=== PATIENT | male | born 1960 | race Caucasian/White ===

== ENCOUNTER 2018-11-08 04:52 | Inpatient (IN) | payer OTHER ==
--- NOTE | 2018-11-07 22:50 | NUR ---
PT REPORTS RELIEF OF ABD PAIN TO 2/10, WILL CONTINUE TO MONITOR
[~2018-11-08] VITALS: Ht 177.8 cm; Wt 61.5 kg
[~2018-11-08 04:52] MED LIST: GABAPENTIN100 M2; GABAPENTIN800 M1 PO; JARDIANCE10 MG; JARDIANCE25 MG PO; LIPI10 PO; LISINOPRIL2.5 MG; LISINOPRIL40 MG PO; METFORMIN HYDR500 M1; METFORMIN850 M1 PO; TOPROL XL100 MG PO; TOPROL XL25 MG
[2018-11-08 04:54] VITALS: Ht 177.8 cm; Wt 61.5 kg
--- NOTE | 2018-11-08 05:07 | NUR ---
PT PRESENTS TO ER TODAY WITH C/O OF VOMITING FOR APPROX 4 DAY. PER PT HE VOMITED ONCE THIS MORNING. PT ALSO REPORTS ONE EPISODE OF DIARRHEA AND GENERALIZED ABD PAIN. PT STATES PAIN PRESSURE LIKE AND RATES IT A 8/10. PT DENIES FEVER OR ANY OTHER SYMPTOMS. PT DENIES TAKING ANY MEDICATION FOR PAIN. PT IS A/O X4. RESP ARE EQUAL AND UNLABORED. NO ACUTE DISTRESS NOTED.
[2018-11-08 06:11] LABS: BASOPHIL % 0.8 % (0-2); PLATELET COUNT 455 x10^3mcL (130-400); RED CELL DISTRIBUTION WIDTH 16.2 % (11.5-14.5)
[2018-11-08 06:14] LABS: CALCIUM 10.1 mg/dL (8.5-10.1); CARBON DIOXIDE 29.5 mmol/L (21-32); CREATININE SERUM 1.9 mg/dL (0.7-1.3); POTASSIUM SERUM 4.9 mmol/L (3.5-5.1)
[2018-11-08 06:19] LABS: ALBUMIN 3.5 g/dL (3.4-5.0); BILIRUBIN TOTAL 0.2 mg/dL (0.20-1.00); TOTAL PROTEIN, SERUM 8.6 g/dL (6.4-8.2)
--- NOTE | 2018-11-08 07:21 | NUR ---
RECEIVED PT, LAYING IN BED, RESP EVEN AND UNLABORED, ON RA@99%. PT AAOX3, REPORTS GENERALIZED ABD PAIN FOR A COUPLE OF DAYS WORSEING IN THE LAST FEW DAYS. ABD DISTENDED, SOFT, TENDER TO TOUCH. +BS [id number]. FACIAL GRIMACING NOTED, ASKED PT IF HE NEEDED PAIN MEDS, BUT CONCERNED WITH DRIVING. INFORMED HE COULD CALL FOR RIDE, BUT STATES HE'D ARTHER WAIT ON HIS PAIN MEDS AT THIS TIME. CALL LIGHT GIVEN, PT INFORMED OF URINE SPECIMEN NEEDED, VERBALIZED UNDERSTANDING. VSS, WILL CONT TO MONITOR.
--- NOTE | 2018-11-08 08:38 | NUR ---
PT GIVEN MORPHONE AND ZOFRAN, ZOSYN STARTED ORDERED. PT INFORMED OF PLANOF CARE REGARDING NG INSERTION, TEACHING DONE ON OPROCEDURE, PT VERBALIZED UNDERSTANDING AND GAVE CONSENT. PT ALSO INFORMED OF NPO STATUS. VSS.
--- NOTE | 2018-11-08 10:16 | NUR ---
NGT INSERTION ATTEMPT X3, UNSUCCESFUL. NOSE BLEED CONTROLLED AT THIS TIME, FAUZIA AND DR ANG INFORMED. WILL INFORM ADMITTING PHYSICIAN.
--- NOTE | 2018-11-08 10:44 | NUR ---
REPORT GIVEN TO SAVANA MICHAELS, UPDATED ON STATUS, ALBS AND VITALS. PT STABLE FOR TRANSFER. RN AWARE THAT WE WERE UNSUCCESFUL IN INSERTING NGT.
--- NOTE | 2018-11-08 12:00 | NUR ---
RECEIVED REPORT FROM ED NURSE. PATIENT IS IN BED 210B. PATIENT IS STABLE, COOPERATIVE WITH NURSING CARE. PATIENT DENIES SOB, AND PAIN AT THIS TIME. PATIENT IS ON ROOM AIR WITH INITAL VITAL SIGNS BP 131/73, HR 83, TEMP 97.5 F, RR 18, O2 98% RA, PAIN 0/10. ABD IS SOFT, ROUND, DISTENDED BUT NON TENDER TO PALPATION. QUESTIONS AND CONCERNS ADRESSED, AFETY PRECAUTIONS MAINTAINED.
[2018-11-08 12:01] VITALS: BP 131/73
[2018-11-08 13:16] VITALS: BP 131/73
--- NOTE | 2018-11-08 13:41 | NUR ---
PATIENT IS REFUSING NG TUBE PLACEMENT. PER PATIENT THREE NURSES TRIED 6 ATTEMPTS IN THE EMERGENCY ROOM AND DOES NOT WANT TO GO THROUGH THAT AGAIN. I WILL MAKE THE DOCTOR AWARE OF THE REFUSAL.
--- NOTE | 2018-11-08 14:00 | NUR ---
DR LOUISE MADE AWARE THAT PATIENT IS REFUSING NG TUBE PLACEMENT. HE ASKED IF SURGZI HAS COME TO DO CONSULT. HE WILL CALL TO SEE WHO WILL DO SURGURY CONSULT.
--- NOTE | 2018-11-08 14:32 | NUR ---
PATIENT IS STABLE RESTING IN BED COMFORTABLY. THERE ARE NO APPARENT SIGNS OF SOB. PATIENT DENIES PAIN AT THIS TIME. PATIENT DENIES OTHER NEEDS AT THIS TIME. SAFETY PRECAUTIONS IN PLACE.
--- NOTE | 2018-11-08 16:00 | NUR ---
PATIENT IS RESTING COMFORTABLY IN BED. NO SIGNS OF APPARENT SOB. IV IN LEFT FOREARM, INFUSING WELL,NO REDNESS NOTED. PATIENT DENIES PAIN AT THIS TIME. FRIEND AT BEDSIDE. PATIEINT DENIES OTHER NEEDS AT THIS TIME.
[2018-11-08 17:42] VITALS: BP 135/69
--- NOTE | 2018-11-08 17:50 | NUR ---
NOTIFIED DR LOUISE OF PATIENT GLUCOSE 87. HE DID TELEPHONE READ BACK ORDER FOR 5% DEXTROSE IN NS 1000ML BG ONCE.
--- NOTE | 2018-11-08 18:45 | NUR ---
PATIENT IS STABLE, DENIES PAIN, NO SIGNS OF SHORTNESS OF BREATH NOTED. FRIEND AT BEDSIDE. PATIENT IS SITTING UP IN BED COMFORTABLY. IV INFUSING D5 NS AT 100ML PER HR. PATIENT HAS SBO, REFUSED NG TUBE PLACEMENT AFTER FAILED ATTEMPTS IN THE ED. IS AWARE. QUESTIONS AND CONCERNS ADDRESSED, SAFETY PERCAUTIONS IN PLACE. WILL ENDORSE CARE TO LAUNDRETTE OWNER NURSE.
--- NOTE | 2018-11-08 19:10 | NUR ---
DR MONROE LEHMAN AT BEDSIDE.
--- NOTE | 2018-11-08 19:30 | NUR ---
DR LEHMAN IN ROOM INSERTING NGT 16 UGANDAN. PT TOLERATED WELL, ATTACHED TO INTERMITENT SUCTION.
--- NOTE | 2018-11-08 19:45 | NUR ---
PT SITTING UP IN BED A/O X 4 PERIPHERAL PULSES PALPABLE THROUGHOUT, LUNG SOUNDS CTA, PT ON RA, ABD FIRM AND DISTENDED, NONTENDER. BOWEL SOUNDS ACTIVE, PT IS CONTINENT OF URINE, PT IS AMBULATORY, IV LEFT AC CDI, SAFETY PRECAUTIONS ION PLACE WILL CONTINUE TO MONITOR
[2018-11-08 21:00] VITALS: BP 144/78
--- NOTE | 2018-11-08 22:30 | NUR ---
PT COMPLAINING OF 9/10 CRAMPING PAIN TO THE ABD, REQUESTING PAIN MEDS, ADMINISTERED, MORPHINE PRN PER MD ORDER WILL REASSES.
--- NOTE | 2018-11-08 22:40 | NUR ---
FOREST FIRE PREVENTION SPECIALIST TO FLOOR WITH CONTRAST SOLUTION AND FIRST 450 ML HAS BEEN INSTILLED THROUGH NGT. PT TOLERATING WELL.WILL CONTINUE TO MONITOR
--- NOTE | 2018-11-08 23:45 | NUR ---
INSTILLED SECOND 450ML OF CONTRAST SOLUTION, PT TOLERATED WELL WILL CONTINUE TO MONITOR, SHELL SHOP SUPERVISOR STATED THEY WOULD BE HERE BETWEEN 0130 AND 0200
--- NOTE | 2018-11-09 01:43 | NUR ---
PROCESS SAFETY MANAGERKEVIN MARR UP TO TRANSPORT PATIENT FOR CT, PT STABLE UPON LEAVING IN WHEELCHAIR
--- NOTE | 2018-11-09 02:00 | NUR ---
PT RETURNED TO BED FROM CT, PT RECONNECTED TO SUCTION, AND FLUIDS RESTARTED, SAFETY PRECAUTIONS IN PLACE, WILL CONTINUE TO MONITOR
--- NOTE | 2018-11-09 02:30 | NUR ---
PT C/O FEELING NAUSEATED. NO VOMITING NOTED. GREENISH YELLOW SECRETION CONTINUES TO COME OUT VIA NGT TO SUCTION. PT MEDICATED W/ ZOFRAN 4 MG IV.
--- NOTE | 2018-11-09 03:00 | NUR ---
PT APPEARS COMFORTABLE AT THIS TIME WITH HIS EYES CLOSED. NO FURTHER C/O NAUSEA.
--- NOTE | 2018-11-09 05:24 | NUR ---
PT SLEPT THROUGH THE NIGHT. PT NGT WAS STARTED BY DR LEHMAN AT THE BEGINING OF SHIFT AND INTERMITENT SUCTION WAS MAINTAINED WITH EXCEPTION OF CONTRAST ADMINISTRATION WHICH WAS APPROVED BY DR LEHMAN, SAFETY PRECAUTIONS WERE MAINTAINED WILL MONITOR AND ENDORSE CARE TO ONCOMING RN
[2018-11-09 06:05] VITALS: BP 148/80
--- NOTE | 2018-11-09 06:57 | NUR ---
DR. Elyse LEHMAN CALLED TO CHECK ON PT'S CONDITION. INFORMED HIM THAT PT RECEIVED 2 DOSES OF MORPHINE FOR PAIN, HAD OUTPUT OF 900 CC FROM NGT, BP OF 148/80. ALSO READ RESULT OF CT SCAN. ORDER FOR STAT KUB GIVEN.
--- NOTE | 2018-11-09 07:02 | NUR ---
CALLED RADIOLOGY DEPARTMEN FOR STAT KUB.
--- NOTE | 2018-11-09 07:05 | NUR ---
RECIEVED BEDSIDE REPORT FROM [facility] SHIFT NURSE DRE AND ORIENTEE FARZANEH. PATIENT IS STABLE. HAS NG TUBE IN PLACE TO INTERMITTENT LOW SUCTION. IV ACCESS TO LFA INFUSING WELL. NS AT 100 ML/HR. PATIENT IS ON ROOM AIR, NO APPARENT SIGNS OF SOB NOTED. PATIENT IS SITTING ON EDGE OF BED, DENIES PAIN AT THIS TIME. DENIES N/V. SUCTION CANISTER WITH 300ML OF GREEN DRAINAGE WITH SOME SOLID PIECES. PATIENT WILL BE HEADING TO OR THIS MORNING.
--- NOTE | 2018-11-09 07:10 | NUR ---
DR. Jacqui LEHMAN CALLED AND GAVE ORDER TO OBTAIN CONSENT FOR EXPLORATORY LAPAROTOMY FOR BOWEL OBSTRUCTION, POSSIBLE BOWEL RESECTION, POSSIBLE OSTOMY AND RESECTION OF INTRA-ABDOMINAL MASS.
[2018-11-09 07:19] LABS: BASOPHIL % 0.3 % (0-2)
[2018-11-09 07:38] LABS: CALCIUM 8.2 mg/dL (8.5-10.1); CARBON DIOXIDE 26.3 mmol/L (21-32); CHLORIDE SERUM 105 mmol/L (98-107); CREATININE SERUM 0.8 mg/dL (0.7-1.3); GFR1 > 60 mL/min; GLUCOSE SERUM 153 mg/dL (74-106); MAGNESIUM 2.6 mg/dL (1.8-2.4); POTASSIUM SERUM 4.5 mmol/L (3.5-5.1); SODIUM SERUM 141 mmol/L (136-145)
--- NOTE | 2018-11-09 07:40 | NUR ---
RECEIVED CALL FROM OR NURSE SAWANT. GAVE REPORT ON PATIENT TO OR NURSE.
[2018-11-09 07:42] LABS: PLATELET COUNT 428 x10^3mcL (130-400)
--- NOTE | 2018-11-09 07:42 | NUR ---
PATIENT GIVEN WIPED WITH CHLOROHEXADINE WIPES IN PREPERATION FOR TAKE TO OR.
--- NOTE | 2018-11-09 07:50 | NUR ---
PATIENT HEADING TO OR FOR SCHEDULED SURGERY. AM MEDICATIONS LOVENOX, PEPCID NOT GIVEN. ROCEPHIN IVPB GIVEN TO OR NURSE TO ADMINISTER.
--- NOTE | 2018-11-09 07:54 | NUR ---
PATIENT TAKEN DOWN TO OR BY OR NURSE.
--- NOTE | 2018-11-09 09:07 | NUR ---
NOTIFIED BY OR NURSE THAT SHE IS TAKING PATIENT BELONGINGS TO ICU. THE PATIENT WILL STAY IN ICU POST OP. ALL PERSONAL BELONGING TO ICU WITH OR NURSE.
--- NOTE | 2018-11-09 11:05 | NUR ---
CALLED ICU SPOKE WITH RUBEN TO GIVE REPORT ON PATIENT.
--- NOTE | 2018-11-09 14:06 | NUR ---
RECEIVED PT FROM OR S/P EXPLORATORY LAPAROSTOMY, EXTENSIV LYSIS ADHESIONS. PT IS AWAKE, ALERT, ORIENTED X 3. PT'S VS CHECKED: HR 88, O2 SAT 97% ON RA, RR 17, BP 115/60 (90). PT STATED PAIN WITHIN TOLERANCE. PT BREATHING ON RA, EVEN, UNLABORED. PT STILL FEELING NAUSEA, NGT IN PLACE, CONNECT TO WALL LOW CONTINUOUS SUCTION. REGLAN GIVEN IN OR AT 1323. ABD MIDELINE INCISION SITE COVERED WITH POST-OP DRESSING AND ABD BINDER, DRESSING CDI. PER OR REPORT, INCISION IS CLOSED WITH SUTURE, CARLOS, TELFA, 4X4, ABD PAD AND ABD BINDER. ENGLISH IN PLACE, DRAINING FREELY VIA GRAVITY. URINE COLOR YELLOW. SCD APPLIED TO BLE, LOVENOX IS ORDERED. IV SITE SALINE LOCK AT THIS TIME, WILL RESUME IVF PER ORDER.
--- NOTE | 2018-11-09 15:06 | NUR ---
Initial Nutrition Assessment- IC06/A CHAD IVORY IA HR Dx: Bowel obstruction, intusseseption PMHx: DM, HTN PSHx: ex-lap for pancreatectomy Labs: (11/09) BG 153H, BUN 23H, WBC 13.6H, MG 2.6H Meds: D50, Humulin, Pepcid, zofran Diet: NPO (s/p ex-lap), consult received for evaluation for PPN PO Intake: Ht: 177.8 cm (70") Wt: 61 kg (134#) BMI: 19.4 kg/m2 IBW: 166# (75 KG) %IBW: 81 UBW: ask pt. Age: 58/M Food Allergies: NKFA Skin: intact Abiodun: 19 Edema: none GI: last BM: 11/07 (Diarrhea), NGT in place with 300 ml of fluid in canister. Per H&P, pt is a 58-year-old male with a history of diabetes and hypertension and heart disease and remote history of ex-lap for pancreatectomy who presents with 4 days of nausea and vomiting and loose stools with generalized abdominal discomfort. Operative report on 11/09/18 suggest port-op ex-lap diagnosis of high grade/complete SBO due to post-op adhesions. FNS received consult for "evaluation for PPN". Imaging: RAD/XR ABD: KUB (AP/PA) (11/09/18) Impression: Findings suggest ileus versus partial small bowel obstruction. RDN visit (11/09): Spoke with RN Dianne. She said that pt just returned from the surgery and has N/V but no diarrhea. Pt has been NPO since admission and has been diagnosed with high grade SBO post ex-lap. Discussed the recommendations for PPN with RN. Problem with: N: yes V: yes D: no C: no Problems with: Chewing/Swallowing: no, NPO d/t SBO Current appetite: poor Recent wt change: unable to access Vitamin/Supplement use: unable to access Special diet at home: unable to access Physical activity: unable to access Education: Diet education N/A at this time. Estimated Nutritional Needs Based on actual body weight 61 kg Energy: 2433-0252 kcal/d (25-30 kcal/kg-maintenance) Protein: 61-73 g/d (1-1.2g/kg)-maintenance and preservation of lean body mass Fluid: 4704-9344 ml/d (1 ml/kcal-fluid balance) or per doctor Nutrition Diagnosis 1. Altered GI function reacted to SBO as evidenced by post-operative (ex-lap) diagnosis of high grade bowel obstruction due to post-op adhesions Intervention 1. Recommend PPN Dextrose 10%, AA 4.25% @ 20ml/hr, goal 45ml/hr. Progress 10ml Q2H. Provides 1080ml fluid, 551 kcal, 46g protein. Monitor/Evaluate Goal: PPN intake at least 75% of estimated needs Monitor: PPN intake/tolerance, Labs, GI function F/U in 2-3 days as high risk 11/11-11/12
--- NOTE | 2018-11-09 15:06 | NUR ---
1. Recommend PPN Dextrose 10%, AA 4.25% @ 20ml/hr, goal 45ml/hr. Progress 10ml Q2H. Provides 1080ml fluid, 551 kcal, 46g protein.
--- NOTE | 2018-11-09 15:30 | NUR ---
PT VOMIT AND COMPLAIN OF INCREASING PAIN ON INCISION SITE. ZOFRAN AND MORPHINE GIVEN PER PRN ORDER.
[2018-11-09 15:56] VITALS: BP 110/57
--- NOTE | 2018-11-09 19:05 | NUR ---
RECEIVED REPORT FROM XENIA ARELLANO FOR CONTINUITY OF CARE. ALL QUESTIONS AND CONCERNS ADDRESSED. PT IS AWAKE AND ALERT. BREATHING IS E/U. ASSESSMENT TO FOLLOW.
[2018-11-09 19:07] VITALS: BP 125/70
--- NOTE | 2018-11-09 19:16 | NUR ---
PT COMPLAIN OF PAIN, MORPHINE GIVEN PER PRN ORDER. PT'S REPORT GIVEN TO COMING NURSE. QUESTIONS AND CONCERN ANSWERED.
--- NOTE | 2018-11-09 19:48 | NUR ---
PT C/O OF NAUSEA; WILL MEDICATE PER EMAR.
--- NOTE | 2018-11-09 23:38 | NUR ---
PT C/O OF PAIN 02/17. WILL MEDICATE PER EMAR.
[2018-11-10 00:04] VITALS: BP 138/68
--- NOTE | 2018-11-10 03:12 | NUR ---
PT C/O OF PAIN 12/18. WILL MEDICATE PER EMAR
[2018-11-10 03:38] VITALS: BP 137/79
--- NOTE | 2018-11-10 05:11 | NUR ---
PT C/O OF NAUSEA. WILL MEDICATE PER EMAR.
[2018-11-10 05:25] LABS: BASOPHIL % 0.7 % (0-2)
[2018-11-10 05:29] LABS: PLATELET COUNT 428 x10^3mcL (130-400); RED CELL DISTRIBUTION WIDTH 16.2 % (11.5-14.5)
[2018-11-10 05:39] LABS: BILIRUBIN TOTAL 0.2 mg/dL (0.20-1.00); CALCIUM 7.6 mg/dL (8.5-10.1); CARBON DIOXIDE 23.3 mmol/L (21-32); CREATININE SERUM 1.5 mg/dL (0.7-1.3); MAGNESIUM 2.3 mg/dL (1.8-2.4); POTASSIUM SERUM 4.7 mmol/L (3.5-5.1)
[2018-11-10 05:46] LABS: ALBUMIN 1.8 g/dL (3.4-5.0); TOTAL PROTEIN, SERUM 5.2 g/dL (6.4-8.2)
--- NOTE | 2018-11-10 07:15 | NUR ---
REPORT GIVEN BY XENIA DE LEON. ALL QUESTIONS ANSWERED.
--- NOTE | 2018-11-10 07:16 | NUR ---
REPORT GIVEN TO XENIA HAYNES FOR CONTINUITY OF CARE. ALL QUESTIONS AND CONCERNS ADDRESSED.
--- NOTE | 2018-11-10 07:18 | NUR ---
PATIENT IS IN BED SLEEPING, BED IS TO THE LOWEST POSITION. PATIENT HAS NGTUBE TO R NARE. PATIENT IS ON ROOM AIR BREATHING ADEQUATELY, AND THERE ARE NO SIGNS OF RESPIRATORY DISTRESS. PATIENT HAS LFA AND RFA IVS INTACT AND PATENT. NS IS INFUSING AT 100 ML/HR AND PPN IS INFUSING AT 80ML/HR. PATIENT HAS ANTERIOR ABDOMINAL SUTURES LOCATED MIDLINE TO ABDOMEN, ABDOMEN DRESSING AND ABDOMINAL BINDER APPLIED. SKIN IS INTACT AND THERE ARE NO WOUNDS NOTED. ENGLISH IS INTACT AND DRAINING VIA GRAVITY WITH FAIR AMOUNT OF OUTPUT, AND YELLOW IN COLOR. PATIENT HAS NOT HAD A BM, PER POLICE CAPTAIN. PATIENT STABLE, FEET ARE OFFLOADED WITH PILLOWS, CALL LIGHT IS WITHIN REACH, WILL CONTINUE TO MONITOR.
[2018-11-10 07:48] VITALS: BP 153/74
--- NOTE | 2018-11-10 09:05 | NUR ---
DR MONROE LEHMAN TELEPHONED UNIT FOR PATIENT UPDATE. UPDATES PROVIDED BY NURSING INCLUDING MOST RECENT BMP AND CBC. NEW ORDERS RECEIVED TO REMOVE NGT FROM RIGHT NARE. WILL CARRY OUT ORDERS.
--- NOTE | 2018-11-10 09:25 | NUR ---
DR LOUISE AT BEDSIDE TO ASSESS PATIENT. PATIENT PROVIDED UPDATE WITH POC DISCUSSED. PATIENT MEDICALLY STABLE TO TRANSFER TO TELE.
--- NOTE | 2018-11-10 09:42 | NUR ---
PATIENT PLACED IN UPRIGHT POSITION FOR NGT REMOVAL. EXPLAINED TO PATIENT REMOVAL OF NGT WITH ALL QUESTIONS AND CONCERNS ADDRESSED. #16F NGT REMOVED FROM RIGHT NARE WITH NO INCIDENT. PATIENT TOLERATED WITH NO S/S OF DISTRESS NOTED. WILL CONTINUE TO MONITOR.
--- NOTE | 2018-11-10 09:50 | NUR ---
IVF OF NS INFUSING AT THIS TIME DISCONTINUED PER MD ORDER.
--- NOTE | 2018-11-10 10:12 | NUR ---
PATIENT STATES THAT THEY ARE STILL HAVING A LOT OF ABDOMEN PAIN. DEEP BREATHIGN EXERCISES WHERE DONE. PATIENT STATES THAT THEY WOULD LIKE MEDICATION FOR THE PAIN. PAIN MEDICATION GIVEN, SEE EMAR. PATIENT STABLE, WILL CONTINUE TO MONITOR.
[2018-11-10 11:32] VITALS: BP 155/82
--- NOTE | 2018-11-10 12:54 | NUR ---
REPORT GIVEN TO XENIA VILLAVICENCIO. ALL QUESTIONS ANSWERED, PATIENT READY TO TRANSFER.
--- NOTE | 2018-11-10 12:59 | NUR ---
PATIENTS PHONE, KEYS AND BELONGS TAKEN UP WITH PATIENT.
--- NOTE | 2018-11-10 13:00 | NUR ---
PATIENT ARRIVED TO FLOOR ACCOMPANIED BY RN MIGUEL. PATIENT HAS MILD COMPLAINTS OF PAIN AT THIS TIME. HAS DRY ABD DRESSINGS, FC DRAINING YELLOW URINE. WILL GIVE PRN DILAUDID FOR PATIENT PAIN. INSTRUCTED PATIENT ON COMPLICATIONS OF POST SURGERY, PATIENT VERBALIZES UNDERSTANDING. PATIENT INSTRUCTED ON USE OF CALL LIGHT, PATIENT UNDERSTANDS. WILL CONTINUE TO MONITOR.
--- NOTE | 2018-11-10 14:05 | NUR ---
PT COMPLAINING OF PAIN 8/10 IN ABDOMEN. PT ASKING FOR DILAUDID. MED ADMINISTERED ORDERED PRN (SEE EMAR). PT REPORTS ABDOMEN IS "TENDER FOLLOWING MAJOR SURGERY". PT REPORTS MOVEMENT MAKES PAIN WORSE. WILL CONTINUE TO MONITOR. COVERING FOR PRIMARY RNSTEPHANIE.
[2018-11-10 15:52] VITALS: BP 152/62
--- NOTE | 2018-11-10 17:01 | NUR ---
PATIENT IN BED ASLEEP. WILL CONTINUE TO MONITOR FOR PAIN.
--- NOTE | 2018-11-10 18:05 | NUR ---
PATIENT STATES THAT HIS PAIN IS SLOWLY RETURNING. PRN DILAUDID 1 MG IVP ADMINISTERED. PATIENT REQUESTED TO BE MOVED TO BED B TO BE CLOSER TO THE AC. PATIENT W ASSIST ABLE TO SELF TRANSFER BED TO BED WO DIFFICULTY. NO OTHER COMPLAINTS AT THIS TIME. WILL ENDORSE TO ONCOMING NURSE. CALL LIGHT IN REACH.
--- NOTE | 2018-11-10 19:54 | NUR ---
PATIENT RECEIVED AWAKE, ALERT, ORIENTED X4 IN BED. RESPIRATION EVEN AND UNLABORED, ON ROOM AIR. S/P EXPLOR LAP. MIDLINE SURGICAL INCISION COVERED WITH DRY/INTACT DRESSING. ON NPO, ONGOING TPN AT 80 CC/HR INFUSING WELL AT THE RIGHT FOREARM. ENGLISH CATHETER TO GRAVITY DRAINING YELLOW COLORED URINE. DENIES PAIN AT THIS TIME. ON TELE #14. WILL CONTINUE TO MONITOR.
[2018-11-10 21:41] VITALS: BP 127/94
--- NOTE | 2018-11-10 21:53 | NUR ---
PATIENT COMPLAINED OF SHARP INCISIONAL PAIN, PS 10/10. MEDICATED WITH DILAUDID 1 MG IVP ORDERED. WILL CONTINUE TO MONITOR.
[2018-11-11 06:02] VITALS: BP 164/86
--- NOTE | 2018-11-11 06:04 | NUR ---
PATIENT RESTING IN BED WITH COMPLAIN OF SHARP INCISIONAL PAIN- ABDOMEN, PS 9/10. MEDICATED WITH DILAUDID 1 MG IVP ORDERED. ONGOING TPN AT 80 CC/HR INFUSING WELL. IV SITE NO SIGN OF INFILTRATION. MIDLINE SURGICAL INCISION COVERED WITH DRY AND INTACT DRESSING, ABDOMINAL BINDER IN PLACE. ENGLISH CATHETER IN PLACED. ASSISTED WITH NEEDS. SAFETY OBSERVED. PLACED BED IN THE LOWEST POSITION. PLACED CALL LIGHT WITHIN REACH AT ALL TIMES.
[2018-11-11 06:46] LABS: CALCIUM 8.3 mg/dL (8.5-10.1); CARBON DIOXIDE 27.4 mmol/L (21-32); CHLORIDE SERUM 108 mmol/L (98-107); GFR1 > 60 mL/min; GLUCOSE SERUM 174 mg/dL (74-106); POTASSIUM SERUM 4.6 mmol/L (3.5-5.1); SODIUM SERUM 142 mmol/L (136-145)
--- NOTE | 2018-11-11 07:21 | NUR ---
RECEIVED PATIENT FROM XENIA PAIZ. PATIENT NOW ASLEEP D/T PRN DILAUDID 1 MG IVP. NO VISIBLE SIGNS OF DISTRESS OR SOB. PLAN FOR PATIENT TODAY IS TO DC ENGLISH CATHETER & GET PATIENT OOB. CALL LIGHT WITHIN REACH.
[2018-11-11 07:51] LABS: PLATELET COUNT 404 x10^3mcL (130-400); RED CELL DISTRIBUTION WIDTH 16.5 % (11.5-14.5)
[2018-11-11 09:25] VITALS: BP 170/88
--- NOTE | 2018-11-11 10:18 | NUR ---
PATIENT FC REMOVED, 500 ML YELLOW URINE DRAINED, NO ODOR, +SEDAMENT. TOLERATED REMOVAL, NO PAIN IN GENITALS. CALL LIGHT IN REACH.
--- NOTE | 2018-11-11 10:19 | NUR ---
PATIENT IN BED, AGREES WITH PLAN FOR THE DAY TO TRY TO GET OUT OF BED PER PHYSICIAN ORDER. WILL WORK WITH PATIENT THROUGHOUT DAY TO TRY TO GET OOB. NO PT ORDERED. PATIENT AWARE OF COMPLICATIONS OF BEING BED BOUND.
--- NOTE | 2018-11-11 10:53 | NUR ---
ROSIBEL SIDDIQI NOTIFIED THAT PATIENTS BP IS ELEVATED TO 170/88. PRN CATAPRES 0.1 MG PO GIVEN. ALSO PRN MORPHINE 4 MG IVP GIVEN FOR 6/10 ABDOMINAL PAIN. WILL CONTINUE TO MONITOR & TALK TO DR LOUISE ABOUT PATIENT BP & DISTENTION WHEN HE ARRIVES. PATIENT AGREED TO ATTEMPT TO STAND AND BE UP TO CHAIR AROUND NOON. CALL LIGHT IN REACH AT THIS TIME.
[2018-11-11 12:25] LABS: BAND NEUTROPHIL 21 % (0-10); MONOCYTE 6 % (0-7); SEGMENTED NEUTROPHILS 67 % (37-75)
[2018-11-11 12:26] LABS: PLATELET MORPHOLOGY PLATELETS NORMAL; rbc morphology (normal/abnorm) ABNORMAL (NORMAL); schistocyte (helmet cell) 1+
--- NOTE | 2018-11-11 12:57 | NUR ---
PATIENT ABLE TO SIT UP TO BEDSIDE. STATES THAT HE IS ABLE TO PASS FLATUS. NO PAIN AT THIS TIME. WILL CONTINUE TO MONITOR FOR PAIN, AND AWAITING DR LOUISE & SURGEON TO SEEN PATIENT.
[2018-11-11 13:32] VITALS: BP 129/76
--- NOTE | 2018-11-11 14:45 | NUR ---
DR WARE IN TO SEE PATIENT. STATES THAT PATIENT CAN BE ON CLEAR LIQUID DIET AND TO CONTINUE HOME LISINOPRIL. TPN ORDERED CHANGED, DR WARE AWARE. PATIENT IN BED RESTING, NO COMPLAINTS. ALL QUESTIONS ADDRESSED.
[2018-11-11 15:17] LABS: BASOPHIL % 0.4 % (0-2)
[2018-11-11 15:19] LABS: PLATELET COUNT 412 x10^3mcL (130-400); RED CELL DISTRIBUTION WIDTH 16.2 % (11.5-14.5)
[2018-11-11 17:42] VITALS: BP 149/88
--- NOTE | 2018-11-11 18:43 | NUR ---
PATIENT ABLE TO SIT UP TO BEDSIDE TO EAT DINNER TRAY. MILD PAIN AT THIS TIME. WILL ENDORSE TO ONCOMING NURSE. CALL LIGHT IN REACH.
--- NOTE | 2018-11-11 19:25 | NUR ---
PT RECEIVED A/O X4, ABLE TO MAKE NEEDS KNOWN. TELE #14, DENIES CP/PRESSURE. PULSES PALPABLE, NO EDEMA PRESENT. LUNG SOUNDS CTA, BREATHING IS EVEN AND UNLABORED ON RA, NO RESP DISTRESS NOTED. ABD SOFT AND ROUND, BOWEL TONES ACTIVE X4 QUAD, DENIES N/V. MIDLINE ABD DRESSING IN PLACE, CDI, WITH ABD BINDER IN PLACE. VOIDS FREELY, URINAL AT BEDSIDE. GENERALIZED WEAKNESS. PT DENIES ANY PAIN AT THIS TIME. IV SITES TO LFA AND RFA, PATENT AND INTACT, SITES FREE FROM REDNESS OR SWELLING. BED IN LOWEST SETTING, SIDE RAILS UP X2, CALL LIGHT WITHIN REACH. WILL CONT TO MONITOR.
[2018-11-11 20:54] VITALS: BP 127/73
--- NOTE | 2018-11-11 21:03 | NUR ---
PT C/O 10/10 PAIN, PRN MORPHINE IVP GIVEN ORDERED. NO ACUTE DISTRESS NOTED. CALL LIGHT WITHIN REACH. WILL CONT TO MONITOR.
--- NOTE | 2018-11-12 00:43 | NUR ---
PT RESTING IN BED WITH EYES CLOSED, BUT IS EASILY AROUSABLE. BREATHING IS EVEN AND UNLABORED, NO RESP DISTRESS NOTED. PT DENIES HAVING ANY PAIN AT THIS TIME. PPN INFUSING WELL TO LFA, SITE FREE FROM REDNESS OR SWELLING. NO ACUTE DISTRESS OBSERVED. CALL LIGHT AND BELONGINGS WITHIN REACH. WILL CONT TO MONITOR.
--- NOTE | 2018-11-12 01:23 | NUR ---
PT C/O 04/19 ABD PAIN, PRN DILAUDID IVP GIVEN ORDERED. NO ACUTE DISTRESS NOTED. CALL LIGHT WITHIN REACH. WILL CONT TO MONITOR.
[2018-11-12 05:01] VITALS: BP 156/82
--- NOTE | 2018-11-12 06:12 | NUR ---
PT SLEPT WELL THROUGHOUT THE EVENING. BREATHING IS EVEN AND UNLABORED, NO RESP DISTRESS NOTED. PT C/O 02/17 ABD PAIN, PRN MORPHINE IVP GIVEN ORDERED. ABD DRESSING WITH ABD BINDER IN PLACE, DRSG CDI. PPN INFUSING WELL TO LFA, SITE FREE FROM REDNESS OR SWELLING. NO ACUTE CHANGES ENCOUNTERED DURING SHIFT. ALL NEEDS MET. CALL LIGHT WITHIN REACH. WILL ENDORSE CARE TO AM NURSE.
--- NOTE | 2018-11-12 07:15 | NUR ---
RECEIVED PATIENT FROM GREEN COFFEE BLENDER NURSE. PATIENT IS AWAKE, ALERT AND ORIENTED. TELE#14, SR, HR 99. ON ROOM AIR, BREATHING EVEN AND UNLABORED. DRESSING TO ABD IS CDI. IV SITES NOTED TO LFA AND RFA, NO S/S ERYTHEMA AT SITES. CALL LIGHT WITHIN EASY REACH. WILL CONTINUE PLAN OF CARE.
[2018-11-12 07:18] LABS: CALCIUM 8.1 mg/dL (8.5-10.1); CARBON DIOXIDE 26.6 mmol/L (21-32); CHLORIDE SERUM 107 mmol/L (98-107); GFR1 > 60 mL/min; GLUCOSE SERUM 189 mg/dL (74-106); POTASSIUM SERUM 5.1 mmol/L (3.5-5.1); SODIUM SERUM 139 mmol/L (136-145)
--- NOTE | 2018-11-12 07:21 | NUR ---
PT IN NO ACUTE DISTRESS. CONTINUITY OF CARE ENDORSED TO SHAUNA RN. ALL QUESTIONS AND CONCERNS ADDRESSED.
[2018-11-12 07:57] VITALS: BP 144/72
[2018-11-12 08:07] LABS: BASOPHIL % 0 % (0-2); PLATELET COUNT 401 x10^3mcL (130-400); RED CELL DISTRIBUTION WIDTH 16.7 % (11.5-14.5)
--- NOTE | 2018-11-12 11:24 | NUR ---
Follow-up Nutrition Assessment- Dx: bowel obstruction, intusseseption Labs: (11/12) Na 139, K 5.1, Glu 189, BUN 26 H, Cr 1.0, Alb 1.8 L, H/H 05/09. Meds: catapres, D50%, dilaudid, humulin R, lovenox, morphine sulfate, norco, Pepcid, sodium chl 0.9%, TPN per pharmacy, Zofran zosyn Current PPN Support: PPN D10%, AA 4.25% at 80 mL/hr. This provides 1920 mL fluid, 979.2 kcal, and 81.6 gm protein, GIR: 2.04 gm mg/kg/min. TPN Intake: (11/09) 900 mL Diet: (11/11) D: (clear liquids) 100%; prior to that NPO. Weights: (11/09) 61 kg/134# Skin: Intact Edema: none Last BM: 11/12/18 x 1 Per Physician Progress Note (11/11), Pt is POD #2, s/p exp lap and extension adhesion lysis, Pt also noted to have had large size stool fecalith in bowel which was surgically removed, Pt noted to be passing gas, on PPN. 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 Plan to start CL diet, taper PPN, continue zosyn. PPN infusing to LFA. Patient notified of current diet and was given a description of restrictions. Pt verbalizes understanding. RDN visited with Pt. Pt seen awake in bed, in good spirits. Pt says he ate all of his CL breakfast, feels he that he is hungry enough for FL or even solid foods. Pt tolerating PPN well, no issues reported. Pt denies N/V/D/C. Pt reports having had a small bowel movement, produced a "small nugget," admits to passing gas. Patient notified of current diet and was given a description of restrictions. Patient was notified of RDN recommended diet change and was given a description of restriction. Pt verbalizes understanding. Estimated Nutritional Needs unchanged from prior assessment: Energy: 1743-9566 kcal/d (25-30 kcal/kg - maintenance) Protein: 61-73 gm/d (1-1.2 gm/kg - maintenance and preservation of lean body mass) Fluid: 4429-7599 mL/d (1 mL/kcal - fluid balance) or per doctor Nutrition Diagnosis 1. Altered GI function related to SBO as evidenced by post-operative (ex lap) diagnosis of high grade bowel obstruction due to post-op adhesions. (Ongoing) Intervention/RDN Recommendation(s): 1. Recommend continue PPN as tolerated, consider weaning as PO diet advances/is tolerated/is medically appropriate. 2. Recommend advance PO diet to [place] and then to regular as tolerated and medically appropriate. Monitor/Evaluate Goal: Intake via PO intakes to meet at least 75% of estimated needs with acceptable tolerance within 2-3 days. Intake via nutrition support to meet at least 80% of estimated needs with acceptable tolerance within 2-3 days. Monitor: PO intakes and/or nutrition support tolerance, Labs, GI function, Skin integrity, Weights. F/U in 2-3 days as high risk (11/14-)
[2018-11-12 12:19] VITALS: BP 150/89
--- NOTE | 2018-11-12 14:25 | NUR ---
DISCUSSED DIET ADVANCEMENT WITH PATIENT. EDUCATED ON DIET TOLERANCE. WILL CONTINUE TO MONITOR.
[2018-11-12 16:51] VITALS: BP 127/82
--- NOTE | 2018-11-12 18:26 | NUR ---
PATIENT RESTING IN BED WITH BOTH EYES CLOSED IN NO ACUTE DISTRESS. CALL LIGHT WITHIN EASY REACH. WILL ENDORSE PATIENT CARE TO MOLD SETTER NURSE.
--- NOTE | 2018-11-12 19:05 | NUR ---
PT RECEIVED A/O X4, ABLE TO MAKE NEEDS KNOWN. TELE #14, DENIES CP/PRESSURE. PULSES PALPABLE, NO EDEMA PRESENT. LUNG SOUNDS CTA, BREATHING IS EVEN AND UNLABORED ON RA, NO RESP DISTRESS NOTED. ABD SOFT AND DISTENDED, BOWEL TONES ACTIVE X4 QUAD, DENIES N/V. MIDLINE ABD INCISION WITH CARLOS INTACT, ALONDRA, WITH ABD BINDER IN PLACE. VOIDS FREELY, URINAL AT BEDSIDE. GENERALIZED WEAKNESS. PT DENIES ANY PAIN AT THIS TIME. IV SITES TO RFA, PATENT AND INTACT, SITE FREE FROM REDNESS OR SWELLING. BED IN LOWEST SETTING, SIDE RAILS UP X2, CALL LIGHT WITHIN REACH. WILL CONT TO MONITOR.
[2018-11-12 20:48] VITALS: BP 140/78
--- NOTE | 2018-11-12 23:05 | NUR ---
PT C/O 02/17 ABD PAIN, PT REQUESTING DILAUDID FOR HIS PAIN MEDICATION. PRN DILAUDID IVP GIVEN ORDERED. NO ACUTE DISTRESS NOTED. CALL LIGHT WITHIN REACH. WILL CONT TO MONITOR.
--- NOTE | 2018-11-13 00:19 | NUR ---
PT RESTING IN BED WITH EYES CLOSED, BUT IS EASILY AROUSABLE. BREATHING IS EVEN AND UNLABORED, NO RESP DISTRESS NOTED. PT DENIES HAVING ANY PAIN AT THIS TIME. RBS-140, NO COVERAGE NEEDED. IV TO RFA INTACT, SITE WNL. NO ACUTE DISTRESS NOTED. CALL LIGHT WITHIN REACH. WILL CONT TO MONITOR.
[2018-11-13 05:32] VITALS: BP 166/83
--- NOTE | 2018-11-13 06:15 | NUR ---
PT SLEPT WELL THROUGHOUT THE EVENING. BREATHING IS EVEN AND UNLABORED, NO RESP DISTRESS NOTED. PT C/O 01/17 ABD PAIN, PRN MORPHINE 2 MG IVP GIVEN ORDERED. ABD CARLOS INTACT WITH ABD BINDER IN PLACE, DRSG CDI. IV TO RFA, PATENT AND INTACT, SITE FREE FROM REDNESS OR SWELLING. NO ACUTE CHANGES ENCOUNTERED DURING SHIFT. ALL NEEDS MET. CALL LIGHT WITHIN REACH. WILL ENDORSE CARE TO AM NURSE.
[2018-11-13 06:27] LABS: BASOPHIL % 0.2 % (0-2)
[2018-11-13 06:49] LABS: CALCIUM 8.3 mg/dL (8.5-10.1); CARBON DIOXIDE 25.2 mmol/L (21-32); CHLORIDE SERUM 104 mmol/L (98-107); CREATININE SERUM 0.8 mg/dL (0.7-1.3); GFR1 > 60 mL/min; GLUCOSE SERUM 143 mg/dL (74-106); SODIUM SERUM 140 mmol/L (136-145)
[2018-11-13 06:53] LABS: PLATELET COUNT 454 x10^3mcL (130-400); RED CELL DISTRIBUTION WIDTH 16.4 % (11.5-14.5)
--- NOTE | 2018-11-13 07:10 | NUR ---
RECEIVED REPORT FROM LATONIA MICHAELS. PT RESTING COMFORTABLY IN BED. IV TO RFA IS PATENT AND INTACT. NO REDNESS OR PAIN. PT ON ROOM AIR. NO C/O SOB AND NO DISTRESS NOTED. TELE # [address] PT DENIES CHEST PAIN. ABDOMINAL INCISION IS COVERED WITH ABDOMINAL BINDER. INCISION IS FULLY APPROXIMATED WITH NO DRAINAGE OR SITE IRRITATION. ALL QUESTIONS AND CONCERNS ADDRESSED.
--- NOTE | 2018-11-13 07:34 | NUR ---
PT IN NO ACUTE DISTRESS. CONTINUITY OF CARE ENDORSED TO HARMONY RN. ALL QUESTIONS AND CONCERNS ADDRESSED.
--- NOTE | 2018-11-13 08:50 | NUR ---
IN TO SEE PATIENT AND ADMINISTER MEDICATION (SEE eMAR). PT RESTING COMFORTABLY IN BED. ALL NEEDS MET. PT REPORTS FEELING READY TO GO HOME AND EAT REAL FOOD. WILL CONTINUE TO MONITOR.
[2018-11-13 08:52] VITALS: BP 167/82
[2018-11-13 13:31] VITALS: BP 144/78
[2018-11-13 15:07] VITALS: BP 144/78
--- NOTE | 2018-11-13 15:45 | NUR ---
PT STABLE FOR DISCHARGE PER MD. DIACHARGE INSTRUCTIONS AND SUMMARY DISCUSSED. PT VERBALIZED UNDERSTANDING AND AGREES TO FOLLOW UP APPOINTMENT. INCISION CARE DISCUSSED. PT TO KEEP CLEAN AND DRY AND UNDERSTANDS NO HEAVY LIFTING >5 LBS UNTIL FOLLOW UP APPOINTMENT WHERE HE WILL RECEIEVE FURTHER INSTRUCTIONS. ID BANDS CUT, IV REMOVED AND IV POLE CLEARED. TELE MONITOR REMOVED. MONITOR NOTIFIED. PT ESCORTED TO LOBBY VIA WHEELCHAIR.
== END 2018-11-13 15:41 | disposition home or self-care (01) | DRG 329 ==
LOC: ED 04:52 → IC 09:56 → MU 09:56 → IC 11-09 13:39 → DU 11-10 13:47
PROVIDERS: Internal Medicine Pulmonary Disease; Surgery; ADMIT Internal Medicine Pulmonary Disease
PROC: 0DQ80ZZ Repair Small Intestine, Open Approach (ICD-10-PCS; 2018-11-09)
PROC: 0DCA0ZZ Extirpation of Matter from Jejunum, Open Approach (ICD-10-PCS; 2018-11-09)
PROC: 0DNW0ZZ Release Peritoneum, Open Approach (ICD-10-PCS; principal; 2018-11-09 08:30)
DX: K56.52 Intestinal adhesions [bands] with complete obstruction (principal); K65.9 Peritonitis, unspecified; N17.9 Acute kidney failure, unspecified; S36.438A Laceration of other part of small intestine, initial encounter; E46 Unspecified protein-calorie malnutrition; Z68.1 Body mass index [BMI] 19.9 or less, adult; K56.2 Volvulus; K56.1 Intussusception; E86.0 Dehydration; X58.XXXA Exposure to other specified factors, initial encounter; E11.65 Type 2 diabetes mellitus with hyperglycemia; I10 Essential (primary) hypertension; I25.10 Atherosclerotic heart disease of native coronary artery without angina pectoris; I25.2 Old myocardial infarction; Z95.1 Presence of aortocoronary bypass graft; Z95.5 Presence of coronary angioplasty implant and graft; Z79.84 Long term (current) use of oral hypoglycemic drugs; Z90.411 Acquired partial absence of pancreas; Y93.89 Activity, other specified; Y92.89 Other specified places as the place of occurrence of the external cause; Y99.8 Other external cause status
CPT/HCPCS: 82962; J0696; J1170; J1650; J2175; J2250; J2270; J2405; J2543; J2765; J3010; J3480; J3490; J7030; J7042; J7050; J7131; Q0092; Q0162; Q9966; Q9967

== ENCOUNTER 2018-12-21 06:09 | Inpatient (IN) | payer OTHER ==
[~2018-12-21] VITALS: Ht 177.8 cm; Wt 61.5 kg
[2018-12-21] VITALS (9 sets, daily range): BP systolic 98–141; BP diastolic 54–76
--- NOTE | 2018-12-21 07:09 | NUR ---
PT BIB SELF FOR C/O BLOOD IN STOOL X1 DAY. PT REPORTS THAT HE NOTICED " BLACK STOOL" SINCE YESTERDAY AND FEELING " DIZZY". PT DENIES ANY LOC. PT DENIES ANY N/V/D. PT IS ABLE TO ANSWER QUESTIONS APPROPRIATELY. PT IS A/O X4. PT RESPS ARE E/U. PT CAN AMBULATE WITH STEADY GAIT FROM ED LOBBY TO ED ROOM. NO ACD NOTED
--- NOTE | 2018-12-21 07:11 | NUR ---
PORTABLE CXR COMPLETED AT BEDSIDE
--- NOTE | 2018-12-21 07:12 | NUR ---
GAVE PT REPORT TO HUAN MICHAELS TO ASSUME PRIMARY CARE OF PT
--- NOTE | 2018-12-21 07:13 | NUR ---
REPORT RECEIVED FROM CARMEN MICHAELS
[2018-12-21 07:21] LABS: BASOPHIL % 0.4 % (0-2); PLATELET COUNT 334 x10^3mcL (130-400)
[2018-12-21 07:27] LABS: ALKALINE PHOSPHATASE 123 U/L (46-116); ALT/SGPT 71 U/L (16-63); AST/SGOT 39 U/L (15-37); BILIRUBIN TOTAL 0.2 mg/dL (0.20-1.00); CALCIUM 8.8 mg/dL (8.5-10.1); CARBON DIOXIDE 26.2 mmol/L (21-32); CHLORIDE SERUM 107 mmol/L (98-107); CREATININE SERUM 0.9 mg/dL (0.7-1.3); GFR1 > 60 mL/min; GLUCOSE SERUM 354 mg/dL (74-106); LIPASE 93 IU/L (73-393); SODIUM SERUM 141 mmol/L (136-145)
[2018-12-21 07:29] LABS: RED CELL DISTRIBUTION WIDTH 17.9 % (11.5-14.5)
[2018-12-21 07:31] LABS: ALBUMIN 2.6 g/dL (3.4-5.0); POTASSIUM SERUM 5.8 mmol/L (3.5-5.1); TOTAL PROTEIN, SERUM 5.8 g/dL (6.4-8.2)
--- NOTE | 2018-12-21 08:57 | NUR ---
PT RESTING COMFORTABLY NO DISTRESS VSS IVF INFUSING WITH NO PROBLEM. WARM BLANKETS PROVIDED FOR PTS COMFORT WILL CONTINUE TO MONITOR
--- NOTE | 2018-12-21 09:40 | NUR ---
PT OOB WITH URGE TO VOID AMBULATORY WITH STEADY GAIT ASYMPTOMATIC AT THIS TIME
--- NOTE | 2018-12-21 09:44 | NUR ---
PT BACK TO ROOM WITH NO INCIDENT
--- NOTE | 2018-12-21 09:45 | NUR ---
PT MEDICATED PER MD ORDERS SEE EMAR
--- NOTE | 2018-12-21 09:48 | NUR ---
REPORT GIVEN TO CARLOS MICHAELS RESUMING CARE OF PT IN TELE FLOOR
--- NOTE | 2018-12-21 10:00 | NUR ---
RECEIVED PATIENT FROM ED VIA GURNEY ACCOMPANIED BY ED NURSE. PATIENT A/O X4, NO NEURO DEFICITS NOTED. TELE # 19 APPLIED, DENIES CHEST PAIN, BREATHING EVEN AND UNLABBORED ON ROOM AIR, DENIES SOB, NO DISTRESS NOTED. DENIES ANY PAIN. PATIENT CAME IN FOR BLACK STOOLS X2 SINCE LAST NIGHT, LAST BM THIS AM. IV TO RFA INTACT AND PATENT FREE FROM REDNESS AND INFILTRATION. PATIENT ORIENTED TO ROOM, INSTRUCTED TO CALL FOR ASSISTANCE IF NEEDED. SAFETY PRECAUTIONS MAINTAINED. WILL MONITOR.
--- NOTE | 2018-12-21 10:00 | NUR ---
PT TRANSPORTED TO TELE FLOOR VIA GURNEY ON PORTABLE CM NO DISTRESS VSS IV SITE PATENT CARLOS MICHAELS RESUMING CARE OF PT.
--- NOTE | 2018-12-21 11:28 | NUR ---
DR. LOUISE AT BEDSIDE TO SPEAK WITH AND ASSESS PATIENT. ALL QUESTIONS AND CONCERNS ADDRESSED.
--- NOTE | 2018-12-21 11:33 | NUR ---
RECEIVED TELEPHONE CALL FROM DR. CHRISTIAN- PATIENT UPDATE GIVEN REVIEWED REASON PATIENT CAME TO [facility] [place]. PER DR. CHRISTIAN KEEP PATIENT NPO FOR POSSIBLE EGD TODAY. PATIENT AND DR. LOUISE MADE AWARE.
--- NOTE | 2018-12-21 11:45 | NUR ---
DR. LOUISE AWARE OF HGB 6.9 AND HCT 21, RECEIVED VERBAL ORDER TO TRANSFUSE 2 UNITS OF PRBC. CONSENT FOR BLOOD TRANSFUSTION OBTAINED AND SIGNED BY PATIENT AND DR. LOUISE. WILL CARRY OUT ORDER.
--- NOTE | 2018-12-21 12:29 | NUR ---
FIRST UNIT OF PRBC INFUSING NOW. PRE VITAL SIGNS ARE FOLLOWED: TEMP 98.2, HR 90, BP 133/10, RR 18, O2 SAT 99% ON ROOM AIR. SAFETY PRECAUTIONS MAINTAINED. WILL MONITOR.
--- NOTE | 2018-12-21 15:08 | NUR ---
1ST UNIT OF PRBC COMPELTED INFUSING, NO ADVERSE REACTION NOTED, VSS. PATIENT IV TO RFA H/L, AND PATIENT TAKEN DOWN TO GI LAB FOR EGD, GLOBAL TECHNICAL WRITER MADE AWARE.
--- NOTE | 2018-12-21 16:12 | NUR ---
RECEIVED PATIENT BACK FROM GI LAB S/P EGD. PATIENT A/O X4, NO DISTRESS NOTED. ABLE TO TRANSFER SELF FROM [facility] TO BED. IVF RESUMED TO RFA INTACT AND PATENT. VSS. PATIENT MADE COMFORTABLE IN BED, ALL NEEDS ATTENDED TO. SAFETY PRECAUTIONS IN PLACE. WILL MONITOR.
--- NOTE | 2018-12-21 17:28 | NUR ---
2ND UNIT OF PRBC INFUSING NOW TO RFA INTACT FREE FROM REDNESS AND INFILTRATION. VSS, PATIENT RESTING COMFORTABLY IN BED, NO DISTRESS NOTED. ALL NEEDS ATTENDED TO, SAFETY PRECAUTIONS MAINTAINED. WILL MONITOR.
--- NOTE | 2018-12-21 19:30 | NUR ---
BEDSIDE REPORT GIVEN TO ROSALIE MICHAELS, ALL QUESTIONS AND CONCERNS ADDRESSED. 2ND UNIT OF PRBC COMPLETED INFUSING NOW, NO ADVERSE REACTION NOTED, IV TO RFA FREE FROM REDNESS AND INFILTRATION. VSS. ALL NEEDS ATTENDED TO DURING SHIFT. SAFETY PRECAUTIONS MAINTAINED.
--- NOTE | 2018-12-21 19:56 | NUR ---
Awake and verbally responsive. No respiratory distress noted on room air. Denies pain. Denies n/v. Denies active bleeding. Had 2 units PRBC. No adverse reaction noted. Will cont.to monitor. Call light within reach.
--- NOTE | 2018-12-22 04:21 | NUR ---
Afebrile. No significant change in condition noted. No active bleeding. Denies pain. No n/v. In no apparent distress.
[2018-12-22 05:18] VITALS: BP 110/61
[2018-12-22 07:27] LABS: BASOPHIL % 0.4 % (0-2); PLATELET COUNT 263 x10^3mcL (130-400)
[2018-12-22 07:28] LABS: RED CELL DISTRIBUTION WIDTH 18.1 % (11.5-14.5)
--- NOTE | 2018-12-22 07:38 | NUR ---
RECEIVED PATIENT FROM XENIA JAIME. PATIENT RESTING IN BED, NO COMPLAINTS AT THIS TIME. STATES THAT HE MIGHT BE DISCHARGED TODAY, INFORMED PATIENT THAT THAT WILL DETERMINED BY DR KIRKPATRICK. INFORMED PATIENT OF PLAN FOR TODAY INCLUDING PO MEDICATIONS, PATIENT AGREES AND VERBALIZES UNDERSTANDING. CALL LIGHT IN REACH.
[2018-12-22 07:54] LABS: CALCIUM 8.6 mg/dL (8.5-10.1); CHLORIDE SERUM 114 mmol/L (98-107); CREATININE SERUM 0.6 mg/dL (0.7-1.3); GFR1 > 60 mL/min; GLUCOSE SERUM 113 mg/dL (74-106); POTASSIUM SERUM 4.9 mmol/L (3.5-5.1); SODIUM SERUM 148 mmol/L (136-145)
[2018-12-22 08:10] VITALS: BP 110/68
--- NOTE | 2018-12-22 09:54 | NUR ---
DR KU IN TO SPEAK WITH PATIENT. MADE PATIENT AWARE THAT DR CHRISTIAN MIGHT POSSIBLY DO COLONOSCOPY. INFORMED PATIENT THAT HE MAY BE REQUIRED TO DRINK LAXATIVE TO PREPARE FOR COLONOSCOPY. PATIENT VERBALIZED UNDERSTANDING AND NEED FOR PROCEDURE. NO COMPLAINTS AT THIS TIME. CALL LIGHT IN REACH.
[2018-12-22 11:43] VITALS: BP 116/69
--- NOTE | 2018-12-22 12:45 | NUR ---
RADIOLOGY IN TO TAKE PATIENT DOWN FOR SCANS. PATIENT OFF FLOOR
--- NOTE | 2018-12-22 14:40 | NUR ---
PATIENT RETURNED TO FLOOR. MEDICATIONS CONTINUED FOR BOWEL PREP FOR COLONOSCOPY SCHEDULED FOR TOMORROW. CALL LIGHT IN REACH
[2018-12-22 16:55] VITALS: BP 108/48
--- NOTE | 2018-12-22 18:28 | NUR ---
PATIENT SEATED AT BEDSIDE. PATIENT COMPLETED BOWEL PREP AND STATES THAT HIS BM IS CLEAR AND LIQUID AT THIS TIME. CONSENT SIGNED FOR TOMORROWS COLONSCOPY. NO COMPLAINTS OF PAIN OR BLODDY STOOL. WILL ENDORSE TO ONCOMING NURSE. CALL LIGHT IN REACH.
--- NOTE | 2018-12-22 20:12 | NUR ---
PT IS A/O X4. PT BREATHING EVEN AND UNLABORED ON ROOM AIR. LUNG SOUNDS CLEAR BILATERALLY. PT IS ON TELE #19 NSR. PT HAS ACTIVE BOWEL SOUNDS ALL ON QAUDRANTS. PT LAST BM WAS 12/22 X5, ABD IS DISTENDED AND SOFT. PT IS AMBULATORY AND VOIDS REGULARY. PT DENIES ANY BLEEING AT THIS TIME. PT DENIES ANY PAIN AT THIS TIME. PT IV RFA IS INFUSING WELL, NO S/S OF REDNESS, SWELLING OR PAIN. WILL CONITNUE TO MONITOR. PT HAS BEEN NOTIFIED TO BE NPO OF MIDNIGHT FOR COLONSCOPY ON 12/23.
[2018-12-22 21:02] VITALS: BP 127/68
[2018-12-23 05:46] VITALS: BP 108/60
--- NOTE | 2018-12-23 06:18 | NUR ---
PT WAS SLEEPING THROUGH THE NIGHT. BREATHING IS EVEN AND UNLABORED. PT HAS NO SIGNS OF RESP DISTRESS. PT HAS BEEN NPO SINCE MIDNIGHT PREPARING FOR COLONOSCOPY 12/23. PT MORNING GLUCOSE WAS 100 WITH NO COVERAGE. PT HAS TWO BM AT NIGHT. PT IV TO RFA INFUSING WELL. PT DENIES ANY PAIN AT THIS TIME. PT HAS BEEN COOPERATIVE WITH NURSING CARE.
[2018-12-23 06:52] LABS: BASOPHIL % 0.4 % (0-2); PLATELET COUNT 330 x10^3mcL (130-400)
[2018-12-23 07:26] LABS: RED CELL DISTRIBUTION WIDTH 17.9 % (11.5-14.5)
--- NOTE | 2018-12-23 07:45 | NUR ---
RECEIVED PATIENT FROM XENIA LY. PATIENT IN BED RESTING. NO COMPLAINTS OF PAIN. STATES HE CONTINUES TO HAVE BM AND THAT IT IS CLEAR AND LIQUID. STATES COLOR IS CLOSER TO BROWN RATHER THAN PREVIOUS BLACK. REPORT GIVEN TO GI LAB FOR COLONOSCOPY, GI LAB STATES THAT MAY GET HIM AT [phone], NOTIFIED PATIENT AND AWARE. CALL LIGHT IN REACH.
--- NOTE | 2018-12-23 07:57 | NUR ---
PATIENT VIA [facility] DOWN TO GI LAB Kerry SANTANA.
--- NOTE | 2018-12-23 09:19 | NUR ---
PATIENT HAS RETURNED TO FLOOR. DENIES ANY NAUSEA OR DIZZINESS. CALL LIGHT IN REACH.
[2018-12-23 09:57] VITALS: BP 128/67
[2018-12-23] MEDS ORDERED: LAC30L PO (12:13)
[2018-12-23] MEDS ORDERED: FERROUS SULFAT325 M2 PO (12:14)
[2018-12-23] MEDS ORDERED: PROTONIX40 MG PO (12:14)
[2018-12-23 13:00] VITALS: BP 128/67
--- NOTE | 2018-12-23 13:10 | NUR ---
DR WOODARD & DR CHRISTIAN IN TO SPEAK WITH PATIENT. PATIENT IS NOW CLEARED FOR DISCHARGE. ALL QUETIONS ADDRESSED, EDUCATION PHAMPLETS PRINTED OUT FOR PATIENT. WILL COMPILE DISCHARGE PACKET FOR PATIENT. NO COMPLAINTS OF PAIN OR DISTRESS AT THIS TIME. CALL LIGHT IN REACH
[2018-12-23 13:52] VITALS: BP 126/76
--- NOTE | 2018-12-23 15:50 | NUR ---
PATIENT DISCHARGE INSTRUCTIONS GIVEN AND EXPLAINED TO PATIENT. DISCHARGE PACKET AND PRESCRIPTIONS GIVEN TO PATIENT. ALL QUESTIONS ADDRESSED. TELEMETRY RETURNED TO [facility], IV CATHETER REMOVED AND INTACT. PATIENT W ALL BELONGINGS ESCORTED DOWNSTAIRS WITH BOOKKEEPING MACHINE OPERATOR PAT VIA AMBULATION. NO BELONGINGS LEFT IN PATIENT ROOM.
== END 2018-12-23 15:52 | disposition home or self-care (01) | DRG 381 ==
LOC: ED 06:09 → DU 09:22
PROVIDERS: Emergency Medicine; Internal Medicine Gastroenterology; ADMIT Internal Medicine Pulmonary Disease
PROC: 30233N1 Transfusion of Nonautologous Red Blood Cells into Peripheral Vein, Percutaneous Approach (ICD-10-PCS; 2018-12-21)
PROC: 0DJ08ZZ Inspection of Upper Intestinal Tract, Via Natural or Artificial Opening Endoscopic (ICD-10-PCS; principal; 2018-12-21 15:00)
PROC: 0W3P8ZZ Control Bleeding in Gastrointestinal Tract, Via Natural or Artificial Opening Endoscopic (ICD-10-PCS; 2018-12-23)
DX: K22.11 Ulcer of esophagus with bleeding (principal); D62 Acute posthemorrhagic anemia; I10 Essential (primary) hypertension; K57.31 Diverticulosis of large intestine without perforation or abscess with bleeding; E11.65 Type 2 diabetes mellitus with hyperglycemia; I25.10 Atherosclerotic heart disease of native coronary artery without angina pectoris; E87.5 Hyperkalemia; I25.2 Old myocardial infarction; Z95.1 Presence of aortocoronary bypass graft; Z79.84 Long term (current) use of oral hypoglycemic drugs; Z95.5 Presence of coronary angioplasty implant and graft; Z79.899 Other long term (current) drug therapy
CPT/HCPCS: 43235; 45378; 82962; A9698; G0378; G0480; J1200; J1610; J1815; J2250; J2310; J2916; J3010; J3490; J7030; J7050; J8597; P9016; Q0092; Q9967